=== PATIENT | male | born 1970 | race Caucasian/White ===

== ENCOUNTER 2020-02-02 06:17 | Emergency (ER) | payer OTHER, SELFPAY ==
--- NOTE | ~2020-02-02 | CT_ITS ---
EXAMINATION: CT abdomen pelvis w con DATE: 02/02/2020 07:46 INDICATION: Left lower quadrant abdominal pain TECHNIQUE: Computed tomography (CT) of the abdomen and pelvis was performed with 100 cc Omnipaque 350 intravenous contrast. Automated exposure control and iterative reconstruction technique were employe d. Exam dose: 1662.75 mGy-cm total exam DLP. COMPARISON: 10/16/2017 CT abdomen and pelvis noncontrast examination FINDINGS: There is mild atelectasis in the lower lung zones. Heart size is within normal range. There is no pericardial or pleural effusion. Very small sliding hiatal hernia. The liver, gallbladder, bile ducts, spleen, pancreas and pancreatic duct are unremarkable. Normal mor phology of the adrenal glands. No renal mass lesion or urinary tract calculus or hydroureteronephrosis is evident. The urinary bladd er and prostate gland are unremarkable. Bilateral small fat-containing inguinal hernias. Normal caliber of the abdominal aorta, which is devoid of atherosclerotic calcification. No intraperi toneal or retroperitoneal or pelvic mass lesion or adenopathy or ascites. Normal appendix. There is epiploic appendagitis at the distal descending colon, with surrounding prominent fat strandi ng. Minimal diverticulosis of the colon. No bowel obstruction or intraperitoneal free air. Diffuse idiopathic skeletal hyperostosis of the thoracic spine. Prominent spurring at L3-4. Mild like ly chronic anterior wedging of L1, likely due to an old mild compression fracture. No suspicious osteolytic or osteoblastic lesions are noted. IMPRESSION: Epiploic appendagitis of distal descending colon Minimal diverticulosis of the colon Small sliding hiatal hernia Reviewed, dictated and finalized at [facility]. Reviewed, dictated and finalized at [facility].
[2020-02-02 06:34] VITALS: BP 153/96; PULSE 75; RESP 18; TEMP 36.5; O2SAT 97
--- NOTE | 2020-02-02 06:36 | PC.NURSE ---
Patient aware of need for urine sample, states he urinated just prior to arrival and will try to go soon.
[2020-02-02 06:47] LABS: Basophils Percent Auto 0.4 % (0.2-1.2); Eosinophils Absolute Auto 0.2 K/mm3 (0-0.3); Eosinophils Percent Auto 1.8 % (0-4.4); Hematocrit 45.3 % (42.0-52.0); Hemoglobin 15.3 g/dL (14.0-18.0); Immature Granulocyte Absolute 0.03 K/mm3 (0.00-0.031); Immature Granulocyte Percent A 0.3 % (0-0.5); Lymphocytes Percent Auto 21.3 % (18.3-44.2); Mean Corpuscular HGB Conc 33.8 g/dl (32-36); Mean Corpuscular Hemoglobin 28.4 pg (26-34); Mean Platelet Volume 10.3 fl (7.4-10.4); Monocytes Absolute Auto 1.1 K/mm3 (0.1-0.6); Monocytes Percent Auto 10.4 % (2.6-8.5); Neutrophils Absolute Auto 7.1 K/mm3 (1.3-6.7); Neutrophils Percent Auto 65.8 % (45.5-73.1); Platelet Count Result 279 k/mm3 (150-375); Red Blood Count 5.39 M/mm3 (4.6-6.20); Red Cell Distribution Width 12.8 % (11.5-14.5); White Blood Count 10.8 K/mm3 (4.5-10.0)
[2020-02-02 07:01] LABS: Alanine Aminotransferase 29 U/L (4-50); Alkaline Phosphatase 86 U/L (38-126); Aspartate Amino Transferase 32 U/L (17-59); Bilirubin,Total 0.4 mg/dL (0.2-1.3); Blood Urea Nitrogen 15 mg/dL (9-20); Carbon Dioxide 26 mmol/L (22-30); Chloride 102 mmol/L (98-107); Estimated CRCL calculation 138 ml/min; Estimated Glomerular Filt Rate > 60; Glucose 104 mg/dL (75-110); Lipase 145 U/L (23-300); Potassium 4.2 mmol/L (3.4-5.0); Sodium 135 mmol/L (137-145)
[2020-02-02] MEDS: MORPHINE SULFATE 4 MG/ML INJ IV PUSH (07:27)
--- NOTE | 2020-02-02 07:33 | ED.ABDPAIN ---
HPI - Abdominal Pain General Chief Complaint: Abdominal Pain Stated Complaint: abd pain/diverticulitis? Time Seen by Provider: 02/02/20 07:03 History of Present Illness HPI narrative: Patient is a 41-year-old male who presents ER with left lower quadrant abdominal pain. Has history of epiploic appendagitis as well as diverticulitis. Reports she had to be admitted for similar symptoms 1 year ago due to worsening infection. Reports typically when he gets flares of his diverticulitis he can switch to liquid diet and improved. However that has not occurred with this. This is been ongoing for 3 days. Pain is starting to radiate into his left upper quadrant. No fevers or chills or sweats. He is been without diarrhea or hematochezia. No alleviating factors. Pain worse with movements. Related Data Allergies Allergy/AdvReac Type Severity Reaction Status Date / Time codeine Allergy Unknown NAUSEA Verified 09/20/17 21:09 hydrocodone Allergy Unknown NAUSEA Verified 09/20/17 21:09 Review of Systems Review of Systems: All systems reviewed & are unremarkable except as noted in HPI and below Constitutional: Constitutional: Denies chills, Denies fatigue and Denies fever(s) Gastrointestinal: Gastrointestinal: Reports abdominal pain, Denies diarrhea, Denies nausea and Denies vomiting PMFSH Past Medical History Medical History (Updated 02/02/20 @ 08:55 by Floyd Chowdhury MD) Depressive disorder, not elsewhere classified Diverticulitis Epiploic appendagitis Gastro-esophageal reflux disease with esophagitis Mixed hyperlipidemia Surgical History Surgical History (Updated 02/02/20 @ 07:36 by Floyd Chowdhury MD) H/O colonoscopy Social History Social History Smoking status: Never smoker Alcohol intake: current Exam Narrative: Exam Narrative: GENERAL: Well-appearing, well-nourished, and in no acute distress. HEAD: Normocephalic, atraumatic. ENT: Mucous membranes moist. CHEST: Clear to auscultation. No respiratory distress. HEART: Regular rate and rhythm. Normal peripheral pulses. ABDOMEN: Soft, mild left upper quadrant tenderness with moderate left lower quadrant tenderness with guarding, nondistended, normal active bowel sounds. EXTREMITIES: Normal range of motion. No edema. SKIN: Warm, dry, no rash. NEURO: Alert and oriented x3. Course Course Emergency Course: Informed of results. Treat with anti-inflammatories at home. Discharge. Vital Signs Vital signs: Vital Signs Temperature 97.7 F 02/02/20 06:34 Pulse Rate 75 02/02/20 06:34 Respiratory Rate 18 02/02/20 06:34 Blood Pressure 153/96 H 02/02/20 06:34 Pulse Oximetry 97 02/02/20 06:34 Temperature 97.7 F 02/02/20 06:34 Pulse Rate 75 02/02/20 06:34 Respiratory Rate 18 02/02/20 06:34 Blood Pressure 153/96 H 02/02/20 06:34 Pulse Oximetry 97 02/02/20 06:34 MDM - Abdominal Pain Lab Data Result diagrams: 02/02/20 06:42 02/02/20 06:42 Labs: Lab Results 02/02/20 02/02/20 02/02/20 Range/Units 06:42 06:42 07:25 WBC 10.8 H (4.5-10.0) K/mm3 RBC 5.39 (4.6-6.20) M/mm3 Hgb 15.3 (14.0-18.0) g/dL Hct 45.3 (42.0-52.0) % MCV 84.0 (80-100) fl MCH 28.4 (26-34) pg MCHC 33.8 (32-36) g/dl RDW 12.8 (11.5-14.5) % Plt Count 279 (150-375) k/mm3 MPV 10.3 (7.4-10.4) fl Immature Gran % (Auto) 0.3 (0-0.5) % Neut % (Auto) 65.8 (45.5-73.1) % Lymph % (Auto) 21.3 (18.3-44.2) % Toole % (Auto) 10.4 H (2.6-8.5) % Eos % (Auto) 1.8 (0-4.4) % Baso % (Auto) 0.4 (0.2-1.2) % Lymph # (Auto) 2.30 (0.9-3.2) K/mm3 Toole # (Auto) 1.1 H (0.1-0.6) K/mm3 Eos # (Auto) 0.2 (0-0.3) K/mm3 Baso # (Auto) 0.0 (0.0-0.1) K/mm3 Abs Immat Gran (auto) 0.03 (0.00-0.031) K/mm3 Absolute Neuts (auto) 7.1 H (1.3-6.7) K/mm3 Absolute Nucleated RBC 0.0 (0.0-0.012) K/mm3 Nucleated RBC % 0.0 (0.0-0.2) % Sodium 135 L (137-145)
[2020-02-02 07:38] LABS: Add Urine Microscopic? YES; Appearance Urine Clear (Clear); Bilirubin Urine Negative (Negative); Blood Urine 1+ (Negative); Color Urine Straw (Yellow); Glucose Urine UA Negative (Negative); Ketones Urine Negative (Negative); Leukocyte Esterase Ur Negative LEU/UL (Negative); Mucus Urine Rare /lpf; Nitrate Urine Negative (Negative); Protein Urine Negative (Negative); RBC Urine 0-2 /hpf (0-2); Specific Grav Ur 1.014 (1.001-1.035); Urobilinogen Urine Negative mg/dL (<2.0); WBC Urine 0-3 /hpf
[2020-02-02] MEDS: KETOROLAC 30 MG/ML VIAL (*BKC) IV PUSH (08:12)
[2020-02-02 09:14] VITALS: BP 147/65; PULSE 70; RESP 14; O2SAT 99
== END 2020-02-02 09:18 | disposition home or self-care (01) ==
PROVIDERS: Emergency Medicine; Emergency Provider Emergency Medicine; PCP Family Medicine
DX: K63.89 Other specified diseases of intestine (principal); R10.32 Left lower quadrant pain; K21.0 Gastro-esophageal reflux disease with esophagitis; E78.2 Mixed hyperlipidemia
CPT/HCPCS: 36415; 74177; 80053; 81001; 83690; 85025; 96374; 96375; 99284; J1885; J2270; Q9967

== ENCOUNTER 2022-04-04 08:31 | Outpatient (CLI) | payer OTHER, SELFPAY ==
[2022-04-04 19:39] LABS: Alanine Aminotransferase 33 U/L (6-50); Albumin Level 4.1 g/dL (3.5-5.1); Alkaline Phosphatase 82 U/L (38-126); Anion Gap 7 mmol/L (8-16); Aspartate Amino Transferase 54 U/L (17-59); Bilirubin,Total 0.4 mg/dL (0.2-1.3); Blood Urea Nitrogen 17 mg/dL (9-20); Calcium 8.9 mg/dL (8.4-10.2); Carbon Dioxide 30 mmol/L (22-30); Chloride 99 mmol/L (98-107); Cholesterol 208 mg/dL (0-200); Estimated Glomerular Filt Rate > 60; Glucose 94 mg/dL (65-110); HDL Direct 31 mg/dL; Potassium 4.4 mmol/L (3.4-5.0); Sodium 136 mmol/L (137-145); Triglycerides 203 mg/dL (<150)
[2022-04-04 19:51] LABS: LDL Cholesterol Direct 122 mg/dL
[2022-04-04 20:26] LABS: Hematocrit 47.9 % (42.0-52.0); Hemoglobin 15.5 g/dL (14.0-18.0); Mean Corpuscular HGB Conc 32.4 g/dl (32-36); Mean Corpuscular Hemoglobin 28.4 pg (26-34); Mean Corpuscular Volume 87.9 fl (80-100); Mean Platelet Volume 11.1 fl (7.4-10.4); Platelet Count Result 279 k/mm3 (150-375); Red Blood Count 5.45 M/mm3 (4.6-6.20); Red Cell Distribution Width 13.4 % (11.5-14.5); White Blood Count 7.5 K/mm3 (4.5-10.0)
[2022-04-04 20:46] LABS: Prostate Specific Antigen 0.9 ng/mL (< OR = 4.0)
[2022-04-08 11:43] LABS: Testosterone Total 158 ng/dL (250-1100)
== END 2022-04-04 08:32 | disposition home or self-care (01) ==
LOC: ANHGOSHLAB 08:34
PROVIDERS: PCP Family Medicine; Visit Provider Family Medicine
DX: R53.83 Other fatigue (principal); E78.2 Mixed hyperlipidemia; E66.9 Obesity, unspecified; E04.1 Nontoxic single thyroid nodule
CPT/HCPCS: 36415; 80053; 80061; 84153; 84403; 84443; 85027; G0103

== ENCOUNTER 2022-04-15 12:54 | Outpatient (CLI) | payer OTHER, SELFPAY ==
[2022-04-18 21:30] LABS: FSH 2.3 mIU/mL (1.6-8.0); LH 2.5 mIU/mL (1.5-9.3); Prolactin 694.1 ng/mL (***)
[2022-04-20 12:52] LABS: Testosterone Free 30.5 pg/mL (35.0-155.0); Testosterone Total 150 ng/dL (250-1100)
== END 2022-04-15 12:55 | disposition home or self-care (01) ==
LOC: ANHGOSHLAB 12:56
PROVIDERS: PCP Family Medicine; Visit Provider Family Medicine
DX: E29.1 Testicular hypofunction (principal)
CPT/HCPCS: 36415; 83001; 83002; 84146; 84402; 84403

== ENCOUNTER 2022-05-10 16:42 | Outpatient (CLI) | payer OTHER, SELFPAY ==
--- NOTE | ~2022-05-10 | MR_ITS ---
EXAMINATION: MR pituitary wo/w con DATE: 05/10/2022 17:41 INDICATION: Other specified findings of blood chemistry. Headache. TECHNIQUE: Magnetic resonance imaging (MRI) of the brain and brainstem was performed without and with 20 mL MultiHance intravenous contrast. COMPARISON: None. FINDINGS: The pituitary is enlarged with height of 14 mm. There is leftward deviation of the nasal se ptum. In the right side of the pituitary, there is a 14 x 7 mm mass of decreased enhancement. There i s no specific evidence of cavernous sinus invasion. There is leftward deviation of the infundibulum. There is no acute ischemic infarct or intracranial hemorrhage. The ventricles are normal in size. The re is mild mucosal thickening in the paranasal sinuses. The orbits are normal. The mastoid air cells are normal. IMPRESSION: 1. 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 Reviewed, dictated and finalized at location [facility].
== END 2022-05-10 16:43 | disposition home or self-care (01) ==
PROVIDERS: PCP Family Medicine; Visit Provider Family Medicine
DX: E29.1 Testicular hypofunction (principal); R79.89 Other specified abnormal findings of blood chemistry; E23.6 Other disorders of pituitary gland
CPT/HCPCS: 70553; A9577

== ENCOUNTER 2023-02-10 08:59 | Outpatient (CLI) | payer OTHER, SELFPAY ==
[2023-02-10 16:58] LABS: Free T4 Free Thyroxine 1.02 ng/mL (0.78-2.19)
[2023-02-15 12:45] LABS: Testosterone Free 43.3 pg/mL (35.0-155.0); Testosterone Total 264 ng/dL (250-1100)
[2023-02-15 14:51] LABS: Prolactin <1.0 ng/mL (***)
== END 2023-02-10 09:00 | disposition home or self-care (01) ==
LOC: ANHGOSHLAB 09:01
PROVIDERS: PCP Family Medicine; Visit Provider Internal Medicine Endocrinology, Diabetes & Metabolism
DX: D35.2 Benign neoplasm of pituitary gland (principal); E29.1 Testicular hypofunction
CPT/HCPCS: 36415; 82533; 84146; 84402; 84403; 84439; 84443

== ENCOUNTER → 2023-03-17 15:42 | Outpatient (CLI) | payer OTHER, SELFPAY ==
--- NOTE | ~2023-03-17 | XR_ITS ---
EXAM: XR hand LT min 3V DATE: 03/17/2023 15:55 HISTORY: S69.90XA - Unspecified injury of unspecified wrist, hand ... . COMPARISON: 05/29/2009. FINDINGS: Some osseous obscuration is present from a ring which could not be removed due to swelling. Normal mineralization. No fracture or dislocation. No lytic or blastic lesion. Mild scattered degene rative changes. No erosion or periosteal change. Soft tissues within normal limits. IMPRESSION: No acute osseous finding in the left hand. Reviewed, dictated and finalized at [facility].
== END ==
PROVIDERS: PCP Family Medicine; Visit Provider Family Medicine
DX: S69.92XA Unspecified injury of left wrist, hand and finger(s), initial encounter (principal); T14.90XA Injury, unspecified, initial encounter
CPT/HCPCS: 73130

== ENCOUNTER 2024-02-19 12:29 | Outpatient (CLI) | payer OTHER, SELFPAY ==
[2024-02-19 19:31] LABS: Cholesterol 219 mg/dL (0-200); HDL Direct 37 mg/dL; Triglycerides 165 mg/dL (<150)
[2024-02-19 19:34] LABS: Alanine Aminotransferase 38 U/L (6-50); Albumin Level 4.3 g/dL (3.5-5.1); Alkaline Phosphatase 77 U/L (38-126); Anion Gap 5 mmol/L (4-12); Aspartate Amino Transferase 62 U/L (17-59); Bilirubin,Total 0.8 mg/dL (0.2-1.3); Blood Urea Nitrogen 21 mg/dL (9-20); Calcium 9.2 mg/dL (8.4-10.2); Carbon Dioxide 28 mmol/L (22-30); Chloride 109 mmol/L (98-107); Estimated Glomerular Filt Rate > 60; Glucose 82 mg/dL (65-110); Potassium 4.1 mmol/L (3.4-5.0); Sodium 142 mmol/L (137-145)
[2024-02-19 19:42] LABS: LDL Cholesterol Direct 128 mg/dL
[2024-02-19 19:59] LABS: Hemoglobin A1C 5.2 % (<5.7)
== END 2024-02-19 12:30 | disposition home or self-care (01) ==
LOC: ANHGOSHLAB 12:31
PROVIDERS: PCP Family Medicine; Visit Provider Family Medicine
DX: E78.5 Hyperlipidemia, unspecified (principal)
CPT/HCPCS: 36415; 80053; 80061; 83036

== ENCOUNTER 2024-06-19 08:05 | Outpatient (CLI) | payer OTHER, SELFPAY ==
[2024-06-19 13:59] LABS: Free T4 Free Thyroxine 1.17 ng/mL (0.78-2.19)
[2024-06-20 10:47] LABS: Prolactin <1.0 ng/mL (2.0-18.0)
[2024-06-22 22:39] LABS: Testosterone Total 386 ng/dL (250-1100)
== END 2024-06-19 08:06 | disposition home or self-care (01) ==
LOC: ANHGOSHLAB 08:07
PROVIDERS: PCP Family Medicine; Visit Provider Internal Medicine Endocrinology, Diabetes & Metabolism
DX: D35.2 Benign neoplasm of pituitary gland (principal); E29.1 Testicular hypofunction
CPT/HCPCS: 36415; 84146; 84403; 84439; 84443

== ENCOUNTER 2024-09-16 10:07 | Outpatient (CLI) | payer OTHER, SELFPAY ==
[2024-09-16 13:46] LABS: Alanine Aminotransferase 22 U/L (6-50); Alkaline Phosphatase 63 U/L (38-126); Anion Gap 5 mmol/L (4-12); Aspartate Amino Transferase 71 U/L (17-59); Bilirubin,Total 0.6 mg/dL (0.2-1.3); Blood Urea Nitrogen 19 mg/dL (9-20); Calcium 8.7 mg/dL (8.4-10.2); Carbon Dioxide 32 mmol/L (22-30); Chloride 104 mmol/L (98-107); Cholesterol 182 mg/dL (0-200); Estimated Glomerular Filt Rate > 60; Glucose 88 mg/dL (65-110); HDL Direct 46 mg/dL; Potassium 4.1 mmol/L (3.4-5.0); Sodium 141 mmol/L (137-145); Triglycerides 96 mg/dL (<150)
[2024-09-16 13:59] LABS: LDL Cholesterol Direct 107 mg/dL
[2024-09-16 14:09] LABS: Prostate Specific Antigen 1.9 ng/mL (< OR = 4.0)
--- OUTSIDE RECORDS SUMMARY | 2024-09-19 12:40 | XMS_ITS | Referral Summary ---
Author Organization [facility] Address [address] [place] [address] Care Team Providers Care Finish Sander Name Role Phone Adan Roberts MD Primary Care Provider [phone] Encounters Date Type Department Care Team Description 06/21/2024 Telephone [facility] Endocrinology Metabolism and Lipid [address] [facility] [address], [address] [place] [address] Nilda Jacobs RN 06/21/2024 9:00 AM CDT Office Visit [facility] Endocrinology Metabolism and Lipid [address] [facility] [address], [address] [place] [address] Nayeli Hilliard MD Prolactinoma (HCC) (Primary Dx); Secondary male hypogonadism from Last 3 Months Allergies No known active allergies Medications butalbital-acet aminophen-caffe ine (ESGIC) 50-325-40 mg per tablet Take 1 tablet by mouth every 4 (four) hours as needed for headaches 30 tablet 2 Active ALPRAZolam (XANAX) 2 mg tablet 1 tablet 2 hours before MRI 1 tablet 3 Active ondansetron (ZOFRAN) 4 mg tablet Take 1 tablet (4 mg total) by mouth every 8 (eight) hours as needed for nausea 12 tablet 4 Active docusate sodium (COLACE) 100 mg capsuleIndicati ons:constipatio n Take 1 capsule (100 mg total) by mouth 2 (two) times a day 14 capsule 4 Active aspirin 81 mg enteric coated tablet Take 1 tablet (81 mg total) by mouth 2 (two) times a day for 14 days 28 tablet 4 Active oxyCODONE-aceta minophen (PERCOCET) 5-325 mg per tabletIndicatio ns:Pain Take 1 tablet by mouth every 6 (six) hours as needed for pain 20 tablet [address] (VOLTAREN) 75 mg EC tablet TAKE 1 TABLET(75 MG) BY MOUTH TWICE DAILY 60 tablet 4 Active lisinopriL (PRINIVIL,ZESTR IL) 10 mg tablet Take 1 tablet (10 mg total) by mouth daily 4 Active cabergoline (DOSTINEX) 0.5 mg tablet Take 1 tablet (0.5 mg total) by mouth 2 (two) times a week 24 tablet 3 4 Active Active Problems Problem Noted Date Diagnosed Date Acute medial meniscus tear of left knee 11/30/19 24 Prolactinoma 05/24/2022 Secondary male hypogonadism 05/24/2022 Headache 05/24/2022 Immunizations Name Administration Dates Next Due Hep A, Adult 02/07/2005,01/25/2005,08/02/2004 Social History Tobacco Use Types Packs/Day Years Used Date Smoking Tobacco: Never Smokeless Tobacco: Never Tobacco Cessation:Counseling Given: No AUDIT-C Answer Date Recorded Q1: How often do you have a drink containing alc ohol? Monthly or less 11/30/2023 Q2: How many drinks containi ng alcohol do you have on a typical day when you are drinking? 1 or 2 11/30/2023 Q3: How often do you have si x or more drinks on one occasion? Never 11/30/2023 Personal Safety Answer Date Recorded Have you ever been in or are you currently in a harmful physical or emotional relationship or is someone making you feel afraid or unsafe? 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 Gender Identity Not on file Sexual Orientation Not on file Last Filed Vital Signs Vital Sign Reading Time Taken Comments Blood Pressure 141/84 06/21/2024 8:54 AM CDT Pulse 54 06/21/2024 8:54 AM CDT Temperature 36.4 ??C (97.5 ??F) 06/21/2024 8:54 AM CD T Respiratory Rate 17 06/21/2024 8:54 AM CDT Oxygen Saturation 100% 06/21/2024 8:54 AM CDT Inhaled Oxygen Concentration - - Weight 104.8 kg (231 lb) 06/21/2024 8:54 AM CDT Height 172.7 cm (5' 8 ) 06/21/2024 8:54 AM CDT Body Mass Index 35.12 06/21/2024 8:54 AM CDT Plan of Treatment Not on file Procedures Procedure Name Priority Date/Time Associated Diagnosis Comments TSH Routine 06/20/2024 4:19 PM CDT Prolactinoma (HCC) Secondary male hypogonadism Other specified abnormal findings of blood chemistry T4, FREE Routine 06/20/2024 4:19 PM CDT Prolactinoma (HCC) Secondary male hypogonadism Other specified abnormal findings of blood chemistry PROLACTIN Routine 06/20/2024 12:36 PM CDT Prolactinoma (HCC) Secondary male hypogonadism Other specified abnormal findings of blood chemistry TESTOSTERONE, TOTAL AND FREE, SERUM Routine 06/19/2024 11:04 AM CDT Prolactinoma (HCC) PROLACTIN Routine 06/19/2024 11:04 AM CDT Prolactinoma (HCC) from Last 3 Months Results * TSH (06/20/2024 4:19 PM CDT) Blood Nayeli Hilliard MD LAB BLOOD ORDERABLES Final Result Performing Organization Address [facility]/ZIP Co de Phone Number EXTERNAL LAB * T4, free (06/20/2024 4:19 PM CDT) Blood Nayeli Hilliard MD LAB BLOOD ORDERABLES Final Result Performing Organization Address City/[facility]/ZIP Co de Phone Number EXTERNAL LAB * Prolactin (06/20/2024 12:36 PM CDT) Blood Nayeli Hilliard MD LAB BLOOD ORDERABLES Final Result EXTERNAL LAB * Testosterone, Total and Free, Serum (06/19/2024 11:04 AM CDT) Blood Nayeli Hilliard MD LAB BLOOD ORDERABLES Final Result Performing Organization Address City/[facility]/ZIP Co de Phone Number EXTERNAL LAB * Prolactin (06/19/2024 11:04 AM CDT) Blood Nayeli Hilliard MD LAB BLOOD ORDERABLES Final Result Performing Organization Address City/[facility] Co de Phone Number EXTERNAL LAB from Last 3 Months Insurance [facility] H[facility]/PPO Address: [address] [address] [facility] H[facility]/PPO Address: [facility] [address] [place] [address] Care Teams Finish Sander Relationship Specialty Start Date End Date Adan Roberts MD PCP - General 01/28/08
--- OUTSIDE RECORDS SUMMARY | 2024-09-19 12:40 | XMS_ITS | Clinical Summary ---
Author Organization [facility] Address [address] [place] [address] Care Team Providers Care Clam Shovel Operator Name Role Phone Adan Roberts MD Primary Care Provider [phone] [phone] Allergies No known active allergies Medications butalbital-acet [...] tablet (10 mg total) by mouth daily 10/09/202 4 Active cabergoline (DOSTINEX) 0.5 mg tablet Take 1 tablet (0.5 mg total) by mouth 2 (two) times a week 24 tablet 3 4 Active Active Problems Problem Noted Date Diagnosed Date Acute medial meniscus tear of left knee 11/30/19 24 Prolactinoma 05/24/2022 Secondary male hypogonadism 05/24/2022 Headache 05/24/2022 Encounters Date Type Department Care Team Description 06/21/2024 9:00 AM CDT Office Visit [facility] Endocrinology Metabolism and Lipid [address] [facility] [address], [address] [place] [address] Nayeli Hilliard MD Prolactinoma (HCC) (Primary Dx); Secondary male hypogonadism 06/21/2024 Telephone [facility] Endocrinology Metabolism and Lipid [address] [facility] [address], [address] [place] [address] Nilda Jacobs RN from Last 3 Months Immunizations Name Administration Dates Next Due Hep A, Adult 02/07/2005,01/25/2005,08/02/2004 Surgical History Surgery Date Site/Laterality Comments WISDOM TOOTH EXTRACTION Family History Medical History Relation Name Comments Stroke Father Anesthesia problems Neg Hx Relation Name Status Comments Father Social History Tobacco Use Types Packs/Day Years [...] on file 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 Gender Identity Not on file Sexual Orientation Not on file Obstetrics History Last Filed Vital Signs Vital Sign Reading [...] 06/21/2024 8:54 AM CDT Plan of Treatment Health Maintenance Due Date Last Done Comments Colon Cancer Screening-Colonoscopy 1971 Depression Screening 1971 Hepatitis C Screening 1971 Prostate Cancer Screening-PSA 1971 DTaP/Tdap/Td Vaccine (1 - Tdap) 1982 Hepatitis B Screening 1989 Regular Well Visit/Exam 18-64 1989 Zoster Vaccine (1 of 2) 2021 Covid-19 Vaccine (3 - 2023-2 5 season) 2024 12/15/2020, 11/23/2020 Influenza Vaccine (#1) 2024 Pneumococcal vaccine <65 Aged Out No longer eligible based on patient's age to complete this topic Procedures Procedure Name Priority Date/Time Associated Diagnosis [...] BLOOD ORDERABLES Final Result Performing Organization Address [facility] de Phone Number EXTERNAL LAB * T4, free (06/20/2024 4:19 PM CDT) Blood Nayeli Hilliard MD LAB BLOOD ORDERABLES Final Result Performing Organization Address [facility] de Phone Number EXTERNAL LAB * Prolactin (06/20/2024 12:36 PM CDT) Blood Nayeli Hilliard MD LAB BLOOD ORDERABLES Final Result Performing Organization Address [facility] de Phone Number EXTERNAL LAB * Testosterone, Total and Free, Serum (06/19/2024 11:04 AM CDT) Blood Nayeli Hilliard MD LAB BLOOD ORDERABLES Final Result Performing Organization Address [facility] de Phone Number EXTERNAL LAB * Prolactin (06/19/2024 11:04 AM CDT) Blood Nayeli Hilliard MD LAB BLOOD ORDERABLES Final Result Performing Organization Address [facility] de Phone Number EXTERNAL LAB from Last 3 Months Insurance [facility] H[facility]/PPO Address: [address] [address] [place] [address] [facility] H[facility]/PPO Address: [facility] [id number] [place] [id number] Care Teams Clam Shovel Operator Relationship Specialty Start Date End Date Adan Roberts MD PCP - General 01/28/08
== END 2024-09-16 10:08 | disposition home or self-care (01) ==
LOC: ANHGOSHLAB 10:08
PROVIDERS: PCP Family Medicine; Visit Provider Family Medicine
DX: E78.2 Mixed hyperlipidemia (principal); K75.81 Nonalcoholic steatohepatitis (NASH); E78.5 Hyperlipidemia, unspecified
CPT/HCPCS: 36415; 80053; 80061; 84153; G0103